=== PATIENT | male | born 1995 | race Caucasian/White ===

== ENCOUNTER 2024-01-29 13:16 | Emergency (ER) | payer SELFPAY ==
[2024-01-29 13:21] VITALS: BP 132/80
[2024-01-29 14:07] LABS: Glucose - Point of Care 357 mg/dl (70-99)
[2024-01-29 14:14] LABS: % Basophils 0.5 % (0-2); % Eosinophils 1.5 % (0-6); % Immature Granulocytes 0.3 % (0-0.5); % Monocytes 6.9 % (1.7-9.3); % Neutrophils 72.8 % (42.2-75.2); Absolute Basophils 0.1 10^3/uL (0-0.2); Absolute Eosinophils 0.2 10^3/uL (0-0.7); Absolute Lymphocytes 1.8 10^3/uL (1.2-3.4); Absolute Monocytes 0.7 10^3/uL (0.1-0.6); Absolute Neutrophils 7.5 10^3/uL (1.4-6.5); Hematocrit 44.9 % (39.0-52.0); Hemoglobin 15.1 g/dL (13.0-18.0); Mean Corp Hgb Conc. 33.6 g/dL (33.0-37.0); Mean Corpuscular Hgb 28.2 pg (27.0-31.0); Mean Corpuscular Volume 83.8 fL (80.0-94.0); Mean Platelet Volume 10.1 fL (7.4-10.4); Nucleated Red Blood Cells % 0 % (-); Platelet Count 332 10^3/uL (130-400); Red Blood Cell Count 5.36 10^6/uL (4.70-6.10); Red Cell Dist. Width 12.1 % (11.5-14.5); White Blood Cell Count 10.2 10^3/uL (4.8-10.8)
[2024-01-29 14:24] LABS: ALT (SGPT) 41 U/L (0-50); AST (SGOT) 29 U/L (17-59); Alkaline Phosphatase 111 U/L (38-126); Blood Urea Nitrogen 12 mg/dl (9-20); Calcium 9.1 mg/dl (8.4-10.2); Carbon Dioxide 24 mmol/L (22-30); Chloride 99 mmol/L (98-107); Glucose 392 mg/dl (70-99); Lipase 195 U/L (23-300); Sodium 130 mmol/L (135-145); Total Bilirubin 0.6 mg/dl (0.2-1.3); Total Protein 7.1 g/dl (6.3-8.2); eGFR > 60.00
[2024-01-29 14:25] LABS: Potassium 4.3 mmol/L (3.5-5.1)
--- NOTE | 2024-01-29 15:55 | ED.GENMED ---
History of Present Illness
General
Chief Complaint: Abdominal Symptoms
Source: patient
Exam Limitations: none
Time Seen by Provider: 01/29/24 14:51
Nursing documentation reviewed up to this point in time: agreed with
Travel History
Have you had any contact with someone who has COVID-19?: No
Do you have any symptoms of coronavirus? Fever > 100 degrees, chills, cough, shortness of breath, sore throat, loss of taste or smell, muscle aches, or headache?: No
History of Present Illness
History of Present Illness:
Patient is a 28-year-old male who presents to the ER complaining of nausea vomiting diarrhea since yesterday. Patient vomited 5 times yesterday few times and has had several episodes of diarrhea. He is a diabetic type II and has not taken his
insulin because of vomiting. He denies any fever chills abdominal pain. Denies any urinary frequency urgency or dysuria. Denies any other sick contacts.
Past History
Past History
ED Past Medical History: Asthma, IDDM and Other (Abscess left groin, vasculitis)
ED Past Surgical History: None
Social History
Tobacco: Former smoker
Alcohol: None
Drug: None
Personal: Single
Living: other (With fianc�)
Employment: Employed
Family History
Family History: Other (Noncontributory)
Review of Systems
Review of Systems
Allergies reviewed?: Yes
All Other Systems: ROS reviewed and negative except as documented in HPI and ROS
Constitutional: Reports no symptoms; Denies fever, fatigue or chills
Respiratory: Reports no symptoms
Cardiac: Reports no symptoms
ABD/GI: Reports nausea, vomiting and diarrhea; Denies abdominal pain
: Reports no symptoms
Musculoskeletal: Reports no symptoms
Skin: Reports no symptoms
Neurological: Reports no symptoms
Endocrine: Reports no symptoms
Psychiatric: Reports no symptoms
Phy Exam
General Physical Exam
General Presentation: no apparent distress
General age: appears stated age
General Skin: warm and dry
General Habitus: normal
General Mental: alert
General Hydration: dry mucous membranes
Gastrointestinal Exam
Gastrointestinal Exam: non tender and soft
Neurological Exam
Neurological Exam: alert and oriented x3
Mely Coma Scale
Eye Opening: Spontaneous
Verbal Response: Oriented
Motor Response: Obeys Commands
GCS Total Score: 15
Musculoskeletal Exam
Musculoskeletal Exam: full ROM
Skin Exam
Skin Exam: normal color and warm/dry
Psychiatric Exam
Psychiatric Exam: normal mood/affect
Course
Orders/Labs/Results
Orders:
Orders
01/29/24 14:05
Complete Blood Count/With Diff Urgent
Comprehensive Metabolic Panel Urgent
Lipase Urgent
01/29/24 15:52
0.9% Sodium Chloride 1000 ml [Nss] 1,000 ml IV BOLUS
Ondansetron Injectable [Zofran] 4 mg IV NOW STA
01/29/24 17:39
0.9% Sodium Chloride 1000 ml [Nss] 1,000 ml IV BOLUS
Abnormal Lab Results
01/29/24 01/29/24 01/29/24
14:03 14:05 19:16
Absolute Neuts (auto) 7.5 H 10^3/uL
(1.4-6.5)
Absolute Monos (auto) 0.7 H 10^3/uL
(0.1-0.6)
Lymphocytes % 18.0 L %
(20.5-51.1)
Sodium 130 L mmol/L
(135-145)
Creatinine 0.6 L mg/dL
(0.7-1.3)
Glucose 392 H mg/dl
(70-99)
POC Glucose 357 H mg/dl 212 H mg/dl
(70-99) (70-99)
01/29/24 14:05
01/29/24 14:05
Vital Signs
Initial and Last Documented VS:
Initial Vital Signs
Temp Pulse Resp BP Pulse Ox
98.1 F 117 18 132/80 96
01/29/24 13:21 01/29/24 13:21 01/29/24 13:21 01/29/24 13:21 01/29/24 13:21
Last Documented Vital Signs
Temp Pulse Resp BP Pulse Ox
98.1 F 93 20 115/69 98
01/29/24 13:21 01/29/24 17:11 01/29/24 17:11 01/29/24 17:11 01/29/24 17:11
MDM/Problems Addressed
Differential Diagnosis Includes:
Not limited to gastroenteritis, dehydration
MDM/Problems Addressed:
Patient is a 28-year-old male presenting with nausea vomiting diarrhea for the past several days he has been able to tolerate some food today however he did not take his diabetic medication. He does present awake alert no acute distress no
complaints abdominal pain abdomen soft and nontender. His vitals are stable he is afebrile with a normal white count stable hemoglobin his sodium is mildly low at 130 (from elevated glucose ) his creatinine is normal 0.6 his sugar is elevated at
392
Pt received fluids here and zofran .
Will give 2 L of fluids and plan to recheck blood sugar
*Critical Care Note
Total Time (30-74mins, 75-104mins- exclusive of procedures): Not Applicable
ED Attending Note
-
Portions of this chart may have been created with voice recognition software.� Occasional wrong word or��sound alike� substitutions may have occurred due to the inherent limitations of voice recognition software.
Discharge Plan
Departure
Patient Disposition: Home (Routine Discharge)
Date of Disposition: 01/29/24
Time of Disposition: 19:20
Patient with high blood pressure during this ER visit?: No
Condition: Good
Covid-19: Not Applicable
Discharge Problem:
Gastroenteritis
Instructions: Diarrhea in teens and adults, Nausea and Vomiting, Adult (DC)
Prescriptions:
New
ondansetron 4 mg tablet,disintegrating
4 mg PO Q8H PRN (Reason: nausea and vomiting) Qty: 14 0RF
No Action
albuterol sulfate 18 GM HFA aerosol inhaler
18 gm IH PRN PRN (Reason: sob)
metformin 1,000 MG tablet
1,000 mg PO BID@0800,1700 30 Days Qty: 60 0RF
ondansetron 4 mg Tablet,Disintegrating
4 mg PO TIDPRN PRN (Reason: nausea/vomiting) Qty: 12 0RF
benzonatate 100 mg capsule
100 mg PO TID PRN (Reason: cough) Qty: 20 0RF
ondansetron 4 mg tablet,disintegrating
4 mg PO Q8H PRN (Reason: nausea and vomiting) Qty: 7 0RF
famotidine 20 mg tablet
20 mg PO BID 14 Days Qty: 28 0RF
Referrals:
Kevon Abdul DO [Family Provider] -
Stand Alone Forms: Return to Work
Activity Restrictions/Additional Instructions:
As discussed you may take Zofran as needed for nausea. This was sent to your pharmacy. Stay well-hydrated. Your sugar was elevated here in the ER. Closely monitor your sugars and take your medication as discussed. Return if any worsening of
symptoms. Follow-up with your family doctor the next several days for reevaluation
Interventions
Interventions:
*Risk Screen - Suicide Last Done: 01/29/24 13:21
*General Assessment Last Done: 01/29/24 13:21
*Neglect/Abuse Screening Last Done: 01/29/24 13:21
ED- Fall Risk Assessment Last Done: 01/29/24 18:50
*ED COVID-19 Vaccine History Last Done: 01/29/24 13:21
*Nursing Disposition Last Done: 01/29/24 19:31
TP-Bqnwbl-Mkcproeqfr Assessment Last Done: 01/29/24 17:12
Discharge Date and Time
Discharge Date/Time: 01/29/24 19:31
Print Language: THAI
[2024-01-29] MEDS: ZOFRAN 4 MG IV (16:59)
[2024-01-29] MEDS: NSS 1000 IV ×2 (16:59→18:49)
[2024-01-29 17:11] VITALS: BP 115/69
[2024-01-29 19:17] LABS: Glucose - Point of Care 212 mg/dl (70-99)
== END 2024-01-29 19:31 | disposition home or self-care (01) ==
LOC: EMR 13:16
PROVIDERS: Emergency Medicine; EMERGENCY PHYSICIAN Emergency Medicine; FAMILY PHYSICIAN Family Medicine
DX: K52.9 Noninfective gastroenteritis and colitis, unspecified (principal)
CPT/HCPCS: 99284; 96374; 96361; 80053; 82962; 83690; 85025

== ENCOUNTER 2025-09-08 10:08 | Emergency (ER) | payer BC, SELFPAY ==
[2025-09-08 10:17] VITALS: BP 117/81
--- NOTE | 2025-09-08 10:34 | ED.GENMED ---
History of Present Illness
General
Chief Complaint: Abdominal Pain
Source: patient
Exam Limitations: none
Time Seen by Provider: 09/08/25 10:22
History of Present Illness
History of Present Illness:
29-year-old male history asi-[id number] diabetes presents complaining of abdominal pain over the past 2 to 3 days with dark black-colored stool and today progressed to loose stool. He notes he is belching more frequently and it smells like
rotten eggs. He denies regular use of NSAIDs caffeine or alcohol. He notes mid and upper abdominal pain. Pain does not radiate to his back. No known sick contacts. No other complaints
Past History
Past History
ED Past Medical History: Asthma, IDDM and Other (Abscess left groin, vasculitis)
ED Past Surgical History: None
Social History
Tobacco: Former smoker
Alcohol: None
Drug: None
Personal: Single
Living: other (With fianc�)
Employment: Employed
Family History
Family History: Other (Noncontributory)
Phy Exam
Physical Exam
Physical Exam:
General: Well-appearing male no acute distress
HEENT: Normal cephalic atraumatic
Heart: Regular rate and rhythm
Lungs: Clear no wheeze
Abdomen is soft tender to the mid abdomen and right lower abdomen. No guarding nondistended
Rectal exam: Brown-colored stool that is heme negative
Course
Orders/Labs/Results
Orders:
Orders
09/08/25 10:32
CT Abd/pelvis W Iv Cont Urgent
Comment:
Reason For Exam: abdominal pain
09/08/25 10:56
Type+Screen Urgent
Complete Blood Count/With Diff Urgent
Comprehensive Metabolic Panel Urgent
Abnormal Lab Results
09/08/25
10:56
WBC 11.3 H 10^3/uL
(4.8-10.8)
Abs Immat Gran (auto) 0.1 H 10^3/uL
(0-0.05)
Absolute Neuts (auto) 8.1 H 10^3/uL
(1.4-6.5)
Absolute Monos (auto) 0.9 H 10^3/uL
(0.1-0.6)
Lymphocytes % 17.8 L %
(20.5-51.1)
Sodium 134 L mmol/L
(135-145)
Creatinine 0.6 L mg/dL
(0.7-1.3)
Glucose 337 H mg/dl
(70-99)
Alkaline Phosphatase 129 H U/L
(38-126)
09/08/25 10:56
09/08/25 10:56
Vital Signs
Initial and Last Documented VS:
Initial Vital Signs
Temp Pulse Resp BP Pulse Ox
98.1 F 96 16 117/81 98
09/08/25 10:17 09/08/25 10:17 09/08/25 10:17 09/08/25 10:17 09/08/25 10:17
Last Documented Vital Signs
Temp Pulse Resp BP Pulse Ox
98.1 F 96 16 117/81 98
09/08/25 10:17 09/08/25 10:17 09/08/25 10:17 09/08/25 10:17 09/08/25 10:35
MDM/Problems Addressed
Differential Diagnosis Includes:
Patient noted black-colored stool however today's exam demonstrates brown heme-negative stool. He is tender on exam. Will order CT of abdomen and labs
*Pulse Oximetry
SaO2: 98
Oxygen Mode of Delivery: Room air
Patient hypoxic: no
*Critical Care Note
Total Time (30-74mins, 75-104mins- exclusive of procedures): Not Applicable
Update Note
Update Note:
CT demonstrates nonspecific thickening of the loops of bowel of the ileum to suggest enteritis. Vital signs are stable labs reviewed no anemia. He was heme-negative here. I suspect likely self-limiting. Will recommend fluids and supportive care.
Stable for discharge
ED Attending Note
-
Portions of this chart may have been created with voice recognition software.� Occasional wrong word or��sound alike� substitutions may have occurred due to the inherent limitations of voice recognition software.
Discharge Plan
Departure
Patient Disposition: Home (Routine Discharge)
Date of Disposition: 09/08/25
Time of Disposition: 12:53
Patient with high blood pressure during this ER visit?: No
Discharge Problem:
Enteritis
Instructions: Diarrhea in teens and adults
Prescriptions:
No Action
albuterol sulfate 18 GM HFA aerosol inhaler
18 gm IH PRN PRN (Reason: sob)
metformin 1,000 MG tablet
1,000 mg PO BID@0800,1700 30 Days Qty: 60 0RF
ondansetron 4 mg Tablet,Disintegrating
4 mg PO TIDPRN PRN (Reason: nausea/vomiting) Qty: 12 0RF
benzonatate 100 mg capsule
100 mg PO TID PRN (Reason: cough) Qty: 20 0RF
ondansetron 4 mg tablet,disintegrating
4 mg PO Q8H PRN (Reason: nausea and vomiting) Qty: 7 0RF
famotidine 20 mg tablet
20 mg PO BID 14 Days Qty: 28 0RF
ondansetron 4 mg tablet,disintegrating
4 mg PO Q8H PRN (Reason: nausea and vomiting) Qty: 14 0RF
Referrals:
Kevon Abdul DO [Family Provider, Family Practice]
Activity Restrictions/Additional Instructions:
Drink plenty clear liquids. Use bland diet as tolerated. Return if worse otherwise follow-up with your doctor
Interventions
Interventions:
*Neglect/Abuse Screening Last Done: 09/08/25 10:17
*Risk Screen - Suicide (C-SSRS) Last Done: 09/08/25 10:17
XL-Wrxlud-Noadazcbhi Assessment Last Done: 09/08/25 10:54
Discharge Date and Time
Print Language: MALTESE
[2025-09-08 10:54] VITALS: BMI 36.4
[2025-09-08 11:06] LABS: Hematocrit 45.9 % (39.0-52.0); Hemoglobin 15.8 g/dL (13.0-18.0); Mean Corp Hgb Conc. 34.4 g/dL (33.0-37.0); Mean Corpuscular Volume 81.8 fL (80.0-94.0); Nucleated Red Blood Cells % 0 % (-); Platelet Count 321 10^3/uL (130-400); Red Cell Dist. Width 12.3 % (11.5-14.5)
[2025-09-08 11:31] LABS: ALT (SGPT) 41 U/L (0-50); AST (SGOT) 27 U/L (17-59); Albumin 4.3 g/dl (3.5-5.0); Alkaline Phosphatase 129 U/L (38-126); Blood Urea Nitrogen 12 mg/dl (9-20); Calcium 8.9 mg/dl (8.4-10.2); Carbon Dioxide 24 mmol/L (22-30); Chloride 100 mmol/L (98-107); Estimated Creatinine Clearance > 125 ml/min; Glucose 337 mg/dl (70-99); Potassium 4.7 mmol/L (3.5-5.1); Sodium 134 mmol/L (135-145); Total Protein 7.6 g/dl (6.3-8.2); eGFR > 60.00
== END 2025-09-08 13:25 | disposition home or self-care (01) ==
LOC: EMR 10:08
PROVIDERS: Physician Assistant; EMERGENCY PHYSICIAN Emergency Medicine; FAMILY PHYSICIAN Family Medicine
DX: K52.9 Noninfective gastroenteritis and colitis, unspecified (principal); J45.909 Unspecified asthma, uncomplicated; E11.9 Type 2 diabetes mellitus without complications; Z87.891 Personal history of nicotine dependence
CPT/HCPCS: 99284; 74177; 80053; 85025; 86850; 86900; 86901; Q9967